=== PATIENT | male | born 1950 | race Caucasian/White ===

== ENCOUNTER 2019-12-31 11:21 | Emergency (ER) | payer OTHER ==
[~2019-12-31] VITALS: Ht 177.8 cm; Wt 97.5 kg
[2019-12-31] MEDS ORDERED: CEPHALEXIN500 M1 PO (12:30)
[2019-12-31] MEDS ORDERED: ANTIBIOTIC28.4 GM T (12:30)
== END 2019-12-31 12:36 | disposition home or self-care (01) ==
LOC: ED 11:21
DX: S81.812A Laceration without foreign body, left lower leg, initial encounter (principal); W01.0XXA Fall on same level from slipping, tripping and stumbling without subsequent striking against object, initial encounter; Y93.01 Activity, walking, marching and hiking; Y92.89 Other specified places as the place of occurrence of the external cause; Y99.8 Other external cause status